=== PATIENT | female | born 1975 | race Caucasian/White ===

== ENCOUNTER 2021-12-26 17:57 | Emergency (ER) | payer OTHER, MEDICAID ==
[~2021-12-26] VITALS: Ht 170.2 cm; Wt 83.9 kg
[~2021-12-26 17:57] MED LIST: ALBUTEROL2.5 MG/0.5 INH; AMARYL2 MG PO; AZITHROMYCIN 2250 MG PO; CLONAZEPAM 0.50.5 M1 PO; CRESTOR10 MG PO; GUAIFEN-CODEIN120 ML PO; LANTUS100 UNIT/M SUBQ; LOVAZA1000 MG PO; METFORMIN HCL500 MG PO; NEXIUM40 MG PO; NOVOLOG100 UNIT/1 SUBQ; SEROQUEL200 MG PO; TRAZODONE 150150 M1 PO; VENTOLIN HFA 1818 GM INH; ZANTAC 150MG T150 MG PO
[2021-12-26 19:42] VITALS: BP 150/93
== END 2021-12-26 19:42 | disposition home or self-care (01) ==
LOC: M.ERS 17:57
DX: S80.02XA Contusion of left knee, initial encounter (principal); E11.9 Type 2 diabetes mellitus without complications; Z90.49 Acquired absence of other specified parts of digestive tract; Z88.6 Allergy status to analgesic agent; Z88.8 Allergy status to other drugs, medicaments and biological substances; W00.0XXA Fall on same level due to ice and snow, initial encounter; Y93.89 Activity, other specified; Y92.89 Other specified places as the place of occurrence of the external cause; Y99.8 Other external cause status